=== PATIENT | female | born 2000 | race Caucasian/White ===

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

== ENCOUNTER 2018-07-31 20:36 | Emergency (ER) | payer SELFPAY ==
[~2018-07-31] VITALS: Ht 160 cm; Wt 79.2 kg
[~2018-07-31 20:36] MED LIST changes: +IBUP-1542 PO
[2018-07-31 21:27] VITALS: Ht 160 cm; Wt 79.2 kg
[2018-07-31] MEDS ORDERED: ONDANSETRON 4 MG INJ IV STA (22:33)
[2018-07-31] MEDS ORDERED: morphine 4 MG/ML VIAL IV STA (22:33)
[2018-08-01] MEDS ORDERED: FAMO-96 PO (00:25)
[2018-08-01] MEDS ORDERED: ACET500C5 PO (00:25)
--- NOTE | 2018-08-01 00:29 | ERD ---
ER Documentation Chief Complaint Chief Complaint right flank pain and gen abd pain since last night. +vomiting. +vag bleed HPI 18-year-old female presents with bilateral upper back pain, and epigastric pain for last day. She had some vomiting nonbilious nonbloody. She is also has some vaginal bleeding. She did have a contraceptive implant in her left upper arm which was removed. She was supposed to have a new one placed but her primary doctor believes that there may be implant still in the skin. Her primary doctor ordered a left humerus x-ray but patient has gone to get the x-ray. Patient denies . She denies previous GI disorders. She denies any relation to food, pain is sharp and intermittent. Pain described as an 9 out of 10. ROS All systems reviewed and are negative except as per history of present illness. Medications Home Meds Active Scripts Famotidine* (Pepcid*) 20 Mg Tablet, 20 MG PO BID for 14 for 4 Days, #30 TAB Prov:GEE RAY MD 08/01/18 Acetaminophen* (Tylophen*) 500 Mg Capsule, 1 CAP PO Q6H PRN for PAIN AND OR ELEVATED TEMP, #20 CAP Prov:GEE RAY MD 08/01/18 Ibuprofen* (Motrin*) 600 Mg Tab, 600 MG PO Q6, #20 TAB Prov:ALE FERRELL PA-C 02/07/17 Ondansetron Hcl* (Zofran*) 4 Mg Tablet, 4 MG PO Q6H for NAUSEA AND/OR VOMITING, #30 TAB Prov:CHARI SANCHEZ PA-C 03/06/16 Acetaminophen* (Tylophen*) 500 Mg Capsule, 1 CAP PO Q6H PRN for PAIN AND OR ELEVATED TEMP, #30 CAP Prov:CHARI SANCHEZ PA-C 03/06/16 Famotidine* (Pepcid*) 20 Mg Tablet, 20 MG PO BID for 14 Days, TAB Prov:CHARI SANCHEZ PA-C 03/06/16 Allergies Allergies: Coded Allergies: No Known Allergy (Unverified , 07/31/18) PMhx/Soc Medical and Surgical Hx: pt denies Medical Hx, pt denies Surgical Hx History of Surgery: No Anesthesia Reaction: No Hx Neurological Disorder: No Hx Respiratory Disorders: No Hx Cardiac Disorders: No Hx Psychiatric Problems: No Hx Miscellaneous Medical Probl: No Hx Alcohol Use: Yes (SOCIAL ) Hx Substance Use: Yes (DAILY MARIJUANA USE) Hx Tobacco Use: No Smoking Status: Current every day smoker Physical Exam Vitals Vital Signs Date Temp Pulse Resp B/P (MAP) Pulse Ox O2 O2 Flow FiO2 Time Delivery Rate 08/01/18 98.6 93 16 115/64 99 Room Air 00:42 (81) 07/31/18 99.4 93 16 128/73 98 21:27 (91) Physical Exam Const: No acute distress Head: Atraumatic Eyes: Normal Conjunctiva ENT: Normal External Ears, Nose and Mouth. Neck: Full range of motion. No meningismus. Resp: Clear to auscultation bilaterally Cardio: Regular rate and rhythm, no murmurs Abd: Soft, epigastric tenderness. Minimal tenderness L2-L3 paraspinous area. No tenderness McBurney's point no Da Silva sign. Non distended. Normal bowel sounds Skin: No petechiae or rashes Back: No midline or flank tenderness Ext: No cyanosis, or edema. No palpable subcutaneous foreign body consistent with contraceptive implant. May be minimal findings suggestive of scar tissue subcutaneously. Neur: Awake and alert Psych: Normal Mood and Affect Result Diagram: 07/31/18224407/31/182244 Results 24 hrs Laboratory Tests Test 07/31/18 22:45 07/31/18 23:00 White Blood Count 10.9 10^3/ul Red Blood Count 4.74 10^6/ul Hemoglobin 14.1 g/dl Hematocrit 41.9 % Mean Corpuscular Volume 88.4 fl Mean Corpuscular Hemoglobin 29.7 pg Mean Corpuscular Hemoglobin Concent 33.7 g/dl Red Cell Distribution Width 12.5 % Platelet Count 174 10^3/UL Mean Platelet Volume 11.0 fl Immature Granulocytes % 0.400 % Neutrophils % 73.9 % Lymphocytes % 17.1 % Monocytes % 7.9 % Eosinophils % 0.4 % Basophils % 0.3 % Nucleated Red Blood Cells % 0.0 /100WBC Immature Granulocytes # 0.040 10^3/ul Neutrophils # 8.1 10^3/ul Lymphocytes # 1.9 10^3/ul Monocytes # 0.9 10^3/ul Eosinophils # 0.0 10^3/ul Basophils # 0.0 10^3/ul Nucleated Red Blood Cells # 0.0 10^3/ul Urine Color YELLOW Urine Clarity SLIGHTLY CLOUDY Urine pH 7.0 Urine Specific [place] 1.021 Urine Ketones NEGATIVE mg/dL Urine Nitrite NEGATIVE mg/dL Urine Bilirubin NEGATIVE mg/dL Urine Urobilinogen 1+ mg/dL Urine Leukocyte Esterase NEGATIVE Marian/ul Urine Microscopic RBC > 182 /HPF Urine Microscopic WBC 5 /HPF Urine Squamous Epithelial Cells FEW /HPF Urine Bacteria FEW /HPF Urine Hemoglobin 3+ mg/dL Urine Glucose NEGATIVE mg/dL Urine Total Protein NEGATIVE mg/dl Sodium Level 141 mmol/L Potassium Level 3.6 mmol/L Chloride Level 102 mmol/L Carbon Dioxide Level 30 mmol/L Anion Gap 9 Blood Urea Nitrogen 9 mg/dl Creatinine 0.72 mg/dl Est Glomerular Filtrat Rate mL/min > 60 mL/min Glucose Level 99 mg/dl Calcium Level 9.3 mg/dl Total Bilirubin 0.8 mg/dl Direct Bilirubin 0.00 mg/dl Indirect Bilirubin 0.8 mg/dl Aspartate Amino Transf (AST/SGOT) 32 IU/L Alanine Aminotransferase (ALT/SGPT) 35 IU/L Alkaline Phosphatase 94 IU/L Total Protein 7.7 g/dl Albumin 4.3 g/dl Globulin 3.40 g/dl Albumin/Globulin Ratio 1.26 Lipase 114 U/L POC Beta HCG, Qualitative NEGATIVE Current Medications Medications Dose Sig/Petey Start Time Status Last (Trade) Ordered Route PRN Stop Time Admin Dose Reason Admin Morphine 4 mg ONCE STAT 07/31/18 DC 07/31/18 Sulfate IV 22:33 23:06 (morphine) 07/31/18 22:35 Ondansetron 4 mg ONCE STAT 07/31/18 DC 07/31/18 HCl (Zofran IV 22:33 23:06 Inj) 07/31/18 22:35 Famotidine 20 mg ONCE ONCE 08/01/18 DC 08/01/18 (Pepcid Iv) IV 00:30 00:27 08/01/18 00:31 Procedures/MDM Right upper quadrant ultrasound normal. CBC and CMP normal. Urine shows signs of infection and hCG negative. Patient given morphine and Zofran. Patient had resolution of pain after observation treatment. She was given Pepcid 20 mg IV. X-ray left humerus 2V Interpreted by me: Bones: No fracture Joints: No dislocation Foreign body: None. Impression-normal left humerus x-ray without evidence of foreign body. Resents with abdominal pain and mild upper back pain. She may have gastritis. There is no signs of pancreatitis, appendicitis, gallbladder disease, signs or symptoms suggest pneumonia, surgical abdomen, additional emergent cause of presenting complaints. Will treat with Tylenol, Pepcid, further observation at home and return precautions. She should recheck in the next day for fevers, vomiting, worsening symptoms, or with primary care doctor. The patient was stable with no new complaints during the ER course. Clinically, there is no current evidence to suggest meningitis, sepsis, acute abdomen, pneumonia, stroke, acute coronary syndrome, pulmonary embolism, aortic dissection or any other emergent condition appearing to require further evaluation or hospitalization. Patient counseled regarding my diagnostic impression and care plan. Prior to discharge all questions answered. Pt agrees with treatment plan and understands strict return precautions. Pt is instructed to follow up with primary care provider within 24-48 hours. Precautionary instructions provided including instructions to return to the ER if not improving or for any worsening or changing symptoms or concerns. Departure Diagnosis: Primary Impression: Abdominal pain Abdominal location: epigastric Qualified Codes: R10.13 - Epigastric pain Condition: Stable Patient Instructions: Abdominal Pain Additional Instructions: Examinations normal today. No evidence of control implant. May be gastritis. Recheck for fevers, vomiting, worsening pain, new worsening symptoms. See primary doctor this week for follow-up. GEE RAY MD Aug 01, 2018 00:29
[2018-08-01] MEDS ORDERED: FAMOTIDINE 20 MG INJ IV ONE (00:30)
[2018-08-01 00:42] VITALS: BP 115/64; PULSE 93; RESP 16
== END 2018-08-01 00:44 | disposition home or self-care (01) ==
LOC: FTE 20:36
DX: R10.13 Epigastric pain (principal); R11.10 Vomiting, unspecified; F17.210 Nicotine dependence, cigarettes, uncomplicated
CPT/HCPCS: 36415; 73060; 76705; 80053; 81001; 81025; 83690; 85025; 96374; 96375; 99285; J2270; J2405